=== PATIENT | male | born 1955 ===

== ENCOUNTER → 2021-10-09 | Outpatient (CLI) | payer OTHER ==
[~2021-10-09] MED LIST: IOHEXOL 300 MG/ML 100ML BOTTLE IJ ONE
[2021-10-09 09:33] LABS: INR 1.05 (0.9-1.15)
[2021-10-09 10:32] LABS: BUN/Creatinine Ratio 10.4; Calcium 8.7 mg/dL (8.5-10.1); Potassium 3.9 mmol/L (3.5-5.1)
== END | disposition home or self-care (01) ==
LOC: CT 08:38
DX: N28.1 Cyst of kidney, acquired (principal); N28.89 Other specified disorders of kidney and ureter; I70.0 Atherosclerosis of aorta; R59.0 Localized enlarged lymph nodes; M47.9 Spondylosis, unspecified; M16.12 Unilateral primary osteoarthritis, left hip
CPT/HCPCS: 36415; 74176; 80048; 85610; 85730; Q9967